=== PATIENT | female | born 1980 | race Caucasian/White ===

== ENCOUNTER 2018-08-05 13:06 | Inpatient (IN) ==
[2018-08-05 13:25] VITALS: BMI 31.3
[2018-08-05] MEDS ORDERED: D5 1/2 NS 1000 ML 1,000 ML IV ONE (13:43)
[2018-08-05] MEDS ORDERED: D5 1/2 NS 1L W PITOCIN 20 UNITS/L 20 UNITS/1,000 ML BAG IV ONE ×2 (13:43→17:58)
[2018-08-05] MEDS ORDERED: D5LR 1L W PITOCIN 10 UNITS/L 10 UNITS/1,000 ML BAG IV ONE (13:43)
[2018-08-05] MEDS ORDERED: PITOCIN ONE ×2 (13:43→14:11)
[2018-08-05 13:47] LABS: AMNISURE ROM TEST NO MEMBRANES RUPTURE (NO RUPTURE)
[2018-08-05] MEDS ORDERED: D5LR 1L W PITOCIN 10 UNITS/L 10 UNITS/1,000 ML BAG IV PRN (13:52)
[2018-08-05] MEDS ORDERED: PITOCIN IVP ONE (13:52)
[2018-08-05] MEDS ORDERED: NUBAIN INJ 200 MG VIAL MULTIDOSE IVP PRN (13:52)
[2018-08-05] MEDS ORDERED: LR 1000 ML IV 1,000 ML IV ONE (13:57)
[2018-08-05] MEDS ORDERED: XYLOCAINE 1 % (PLAIN) ONE (13:59)
[2018-08-05] MEDS ORDERED: FENTANYL INJ 100 mcg ONE (14:00)
[2018-08-05] MEDS ORDERED: NAROPIN EPIDURAL 0.2% + FENTANYL 90MCG 60 ML EPI ONE (14:00)
[2018-08-05] MEDS ORDERED: D5 1/2 NS 1000 ML 1,000 ML IV SCH (14:00)
[2018-08-05] MEDS ORDERED: NS 100 ML IV 100 ML IV ONE (14:00)
[2018-08-05] MEDS ORDERED: AMPICILLIN VIAL 2 GRAM ONE (14:00)
[2018-08-05] MEDS ORDERED: XYLOCAINE-MPF 1% ONE (14:00)
[2018-08-05] MEDS ORDERED: AMPICILLIN VIAL 2 GRAM 2 G in NS 100 ML IV + SPIKE MINIBAG* 100 ML IV SCH (14:00)
[2018-08-05] MEDS ORDERED: ADRENALINE CHL INJ ONE (14:00)
[2018-08-05] MEDS ORDERED: VERSED ONE (14:11)
[2018-08-05 14:30] LABS: BASOPHILS % (AUTO) 0.3 % (0.2-1.0); EOSINOPHILS % (AUTO) 0.3 % (0.9-2.9); HEMATOCRIT 31.5 % (36.0-47.0); HEMOGLOBIN 9.8 g/dL (12.0-16.0); LYMPHOCYTES # (AUTO) 1.1 X10^3/uL (1.3-2.9); LYMPHOCYTES % (AUTO) 9.7 % (21.0-51.0); MEAN CORPUSCULAR HGB CONC 31.2 g/dL (33.0-35.0); MEAN CORPUSCULAR VOLUME 70.6 fL (80.0-100.0); MEAN PLATELET VOLUME 9.9 fL (7.4-11.0); MONOCYTES # (AUTO) 0.8 x10^3/uL (0.3-0.8); NEUTROPHILS # (AUTO) 9.8 x10^3/uL (2.2-4.8); NEUTROPHILS % (AUTO) 82.7 % (42.0-75.0); PLATELET COUNT 311 X10^3/uL (150.0-450.0); RED BLOOD COUNT 4.46 X10^6/uL (3.5-5.4); RED CELL DISTRIBUTION WIDTH 20.3 % (11.6-16.5); WHITE BLOOD COUNT 11.8 X10^3/uL (3.6-10.0)
[2018-08-05 14:39] LABS: BLOOD UREA NITROGEN 19 mg/dL (7-18); CALCIUM 8.6 mg/dL (8.5-10.1); CHLORIDE 101 mmol/L (98-107); CREATININE 0.95 mg/dL (0.55-1.02); SODIUM 134 mmol/L (136-145); eGFR NON BLACK RACES > 60 (>60)
[2018-08-05 14:59] LABS: ANISOCYTOSIS 1+; HYPOCHROMASIA 1+; PLATELET MORPHOLOGY COMMENT NORMAL (NORMAL)
[2018-08-05] MEDS ORDERED: DILAUDID INJ ONE (16:27)
[2018-08-05] MEDS ORDERED: XYLOCAINE 2% and EPINEPHRINE 1:100,000 ONE (16:28)
[2018-08-05] MEDS ORDERED: BENADRYL INJ 50 MG VIAL IVP PRN (17:19)
[2018-08-05] MEDS ORDERED: PHENERGAN INJ 25 MG IVP PRN (17:19)
[2018-08-05] MEDS ORDERED: ZOFRAN INJ 4 MG VIAL IVP PRN ×2 (17:19→20:05)
[2018-08-05] MEDS ORDERED: REGLAN INJ 10 MG VIAL IVP PRN (17:19)
[2018-08-05] MEDS ORDERED: DILAUDID INJ IVP PRN (17:19)
[2018-08-05] MEDS ORDERED: AMPICILLIN VIAL 1 GRAM 1 G in NS 50 ML IV + SPIKE MINIBAG* 50 ML IV SCH (17:58)
[2018-08-05] MEDS ORDERED: D5 1/2 NS 1000 ML 1,000 ML with PITOCIN 20 UNITS IV SCH ×2 (18:00)
[2018-08-05] MEDS ORDERED: ZOFRAN INJ 4 MG VIAL ONE (18:03)
[2018-08-05] MEDS: NORMODYNE TAB 200 MG PO SCH ×2 (19:36→23:56)
[2018-08-05] MEDS: TORADOL 30 MG VIAL IVP PRN (19:54)
[2018-08-06] MEDS: TORADOL 30 MG VIAL IVP PRN ×2 (01:07→06:59)
[2018-08-06] MEDS ORDERED: MYLICON TAB 80 MG CHEW PO ONE (01:26)
[2018-08-06] MEDS: MYLICON TAB 80 MG CHEW PO PRN ×2 (01:28→07:01)
[2018-08-06 06:16] LABS: HEMATOCRIT 25.8 % (36.0-47.0); HEMOGLOBIN 8.2 g/dL (12.0-16.0)
[2018-08-06] MEDS ORDERED: PROVENTIL NEB TX 0.083% 2.5MG/ 3ML NEB PRN (07:26)
[2018-08-06] MEDS: COLACE CAP 100 MG PO SCH ×2 (09:34→21:10)
[2018-08-06] MEDS: PERCOCET TAB 5/325 MG PO PRN ×3 (09:35→20:12)
[2018-08-06] MEDS: PRENATAL PLUS PO SCH (09:35)
[2018-08-06] MEDS: NORMODYNE TAB 200 MG PO SCH ×2 (09:35→21:10)
[2018-08-06] MEDS ORDERED: NS 100 ML IV 100 ML with VENOFER 200 MG IV NR ×2 (10:00)
[2018-08-06] MEDS: BACTROBAN CREAM TOP SCH ×2 (14:27→22:00)
[2018-08-06] MEDS: MOTRIN TAB 800 MG PO PRN (18:25)
[2018-08-07] MEDS: PERCOCET TAB 5/325 MG PO PRN ×2 (01:50→10:49)
[2018-08-07] MEDS: MOTRIN TAB 800 MG PO PRN ×3 (01:50→14:32)
[2018-08-07] MEDS: BACTROBAN CREAM TOP SCH ×2 (05:22→14:32)
[2018-08-07] MEDS: MYLICON TAB 80 MG CHEW PO PRN ×2 (07:20→14:32)
[2018-08-07] MEDS: PRENATAL PLUS PO SCH (08:54)
[2018-08-07] MEDS: COLACE CAP 100 MG PO SCH (08:54)
[2018-08-07] MEDS ORDERED: ADACEL or BOOSTRIX TDaP VACCINE IM ONE (08:56)
[2018-08-07] MEDS: NORMODYNE TAB 200 MG PO SCH (09:03)
[2018-08-07 12:55] VITALS: BP 139/89
== END 2018-08-07 15:25 | disposition home or self-care (01) | DRG 784 ==
LOC: ER 13:11 → LD 13:40 → MED/SURG 18:28
PROVIDERS: ADMIT Obstetrics & Gynecology Obstetrics; ATTEND Specialist
DX: O09.513 Supervision of elderly primigravida, third trimester; Z30.2 Encounter for sterilization; Z3A.36 36 weeks gestation of pregnancy; O64.8XX0 Obstructed labor due to other malposition and malpresentation, not applicable or unspecified; O75.89 Other specified complications of labor and delivery; O60.14X0 Preterm labor third trimester with preterm delivery third trimester, not applicable or unspecified; Z37.0 Single live birth; Z23 Encounter for immunization; O10.413 Pre-existing secondary hypertension complicating pregnancy, third trimester
CPT/HCPCS: 36415; 80048; 81050; 84112; 84157; 85014; 85018; 85025; 86592; 86850; 86900; 86901; 90715; 99284; A4222; S0197; J0171; J0290; J1170; J1756; J1885; J2001; J2250; J2405; J2590; J3010; J3490; J7050; J7120; S5010